=== PATIENT | female | born 1990 | race American Indian/Alaskan Native ===

== ENCOUNTER 2019-09-10 07:20 | Day surgery (SDC) | payer MEDICAID ==
[2019-09-10] MEDS ORDERED: METHYLERGONOVINE MALEATE 0.2 MG/ML VIAL IM ONE ×4 (08:06→22:02)
--- NOTE | 2019-09-10 08:07 | Short Stay Summary ---
Short Stay Documentation Date of service: 09/10/19 Narrative H&P: Pt is a 29yo BF LMP 05/13/19 presents for surgical evaluation and treatment of Missed due to demise. Ob u/s showed IUFD @ 10 1/7 weeks. She now presents for a D&C. - History Principal diagnosis: Incomplete H&P: obtained from office Past Medical History: hypertension, other (asthma) Past Surgical History: Social history: no significant social history, single - Allergies and Medications Current Medications: Allergies No Known Allergies Allergy (Verified 09/07/19 15:27) Home Medications Medication Instructions Recorded Confirmed Last Taken Type NIFEdipine [Nifedipine ER] 60 mg PO HS 09/07/19 09/07/19 Unknown History - Physical exam General appearance: no acute distress Integumentary: no rash HEENT: Atraumatic Lungs: Clear to auscultation Breasts: deferred Heart: Regular rate Gastrointestinal: normal Female Genitourinary: deferred Rectal Exam: deferred Extremities: no ischemia, No edema Neurological: Normal gait, Normal speech - Brief post op/procedure progress note Date of procedure: 09/10/19 Pre-op diagnosis: 1. Missed 2. demise 3. Incomplete Post-op diagnosis: same Procedure: D&C Anesthesia: MAC Findings: A 10-12 weeks size uterus with necrotic tissue and POC Surgeon: SHINE MARRERO Estimated blood loss: other (200ml) Pathology: list (POC) Specimen disposition: to lab Condition: stable - Hospital course Hospital course: Unremarkable. - Disposition Condition at discharge: Good Disposition: DC- TO HOME OR SELFCARE - Discharge Diagnoses (1) Missed Status: Acute (2) demise due to miscarriage Status: Acute Short Stay Discharge Plan Activity: no restrictions Diet: regular Follow up with: TOM PASCAL MD [Primary Care Provider] - 7 Days SHINE MARRERO MD [Staff Physician] - 14 Days Prescriptions: Doxycycline Hyclate [Doxycycline Hyclate TAB] 100 mg PO Q12HR #14 tab Methylergonovine [Methergine] 0.2 mg PO Q8HR #6 tablet Ibuprofen [Motrin] 800 mg PO Q8HR PRN #30 tablet PRN Reason: Pain, Moderate (4-6)
[2019-09-10] MEDS ORDERED: SILVER NITRATE APPLICATOR 1 EA TP ONE ×2 (08:10→21:47)
--- NOTE | 2019-09-10 08:21 | Anesthesia Consultation ---
Anesthesia Consult and Med Hx Date of service: 09/10/19 - Airway Anesthetic Teeth Evaluation: Good ROM Head & Neck: Adequate Mental/Hyoid Distance: Adequate Mallampati Class: Class II - Pulmonary Exam CTA: Yes - Cardiac Exam Cardiac Exam: RRR - Pre-Operative Health Status ASA Pre-Surgery Classification: ASA2 Proposed Anesthetic Plan: General - Pulmonary Hx Asthma: Yes (As a child) - Cardiovascular System Hx Hypertension: Yes (x 1 yr) - Central Nervous System Hx Psychiatric Problems: Yes - Other Systems Hx Cancer: No
--- NOTE | 2019-09-10 08:22 | Anesthesia Day of Surgery ---
Anesthesia Day of Surgery - Day of Surgery Patient Examined: Yes Patient H&P Reviewed: Yes Patient is NPO: Yes
[2019-09-10] MEDS ORDERED: HYDROmorphone 1 MG/1 ML INJ IV PRN ×2 (08:23→22:02)
[2019-09-10] MEDS ORDERED: ONDANSETRON 4 MG/2 ML INJ IV PRN (08:23)
[2019-09-10] MEDS ORDERED: fentaNYL 100 MCG/2 ML INJ ONE (08:38)
[2019-09-10] MEDS ORDERED: LIDOCAINE MPF (2%) 20 MG/1 ML VIAL 5 ML ONE (08:38)
[2019-09-10] MEDS ORDERED: PROPOFOL 200 MG/20 ML VIAL IV ONE (08:39)
[2019-09-10] MEDS ORDERED: LACTATED RINGERS 1,000 ML IV SCH (09:00)
[2019-09-10] MEDS ORDERED: MIDAZOLAM 2 MG/2 ML INJ IV NR (09:00)
[2019-09-10] MEDS ORDERED: ceFAZolin/Water 2 GM/20 ML 2 GM/20 ML SYRINGE IV NR (09:00)
[2019-09-10 09:42] LABS: Hematocrit 36.3 % (30.3-42.9); Hemoglobin 12.5 gm/dl (10.1-14.3)
[2019-09-10] MEDS ORDERED: ONDANSETRON 4 MG/2 ML INJ ONE (11:04)
--- NOTE | 2019-09-10 11:13 | Ultrasound Report ---
FIRSTTRIMESTER OBSTETRIC ULTRASOUND HISTORY: demise COMPARISON: None. TECHNIQUE: Routine transabdominal OB ultrasound performed. FINDINGS: Uterus: Mildly enlarged measuring 11.9 x 7.4 x 9.1 cm. Gestational Sac: Deformed Yolk Sac: Visualized Fetus/Embryo: [place]-rump length of 3.88 cm, corresponding to an estimated gestational age of 10 weeks 6 days. Embryonic/ anatomy is too small for evaluation. Embryonic/ cardiac activity: 0bpm Placenta: Too small for evaluation. Amniotic fluid volume: Subjectively appropriate for gestational age. Ovaries: The right ovary is not visualized. The left ovary is visualized. Additional findings: None. IMPRESSION Findings consistent with demise Signer Name: Jules South Jr, MD Signed: 09/10/2019 11:09 AM Workstation Name: [id number]
[2019-09-10] MEDS ORDERED: HYDROmorphone 1 MG/1 ML INJ ONE (11:19)
--- NOTE | 2019-09-10 11:21 | Operative Report ---
Operative Report Operative Report: PREOPERATIVE DIAGNOSIS: 1. Incomplete 2. demise 3. Missed POSTOPERATIVE DIAGNOSIS: Same OPERATIVE PROCEDURE: 1. Dilatation and curettage. SURGEON: Jules Scott MD ANESTHESIA: Gen. MAC ANESTHESIOLOGIST: Dr. Hatch ESTIMATED BLOOD LOSS: 200 mL's FINDINGS: A 10-12 week size uterus with tissue and large amounts of blood clots and products of conception. COMPLICATIONS: None COUNTS: Correct x3. PROCEDURE: After the patient was correctly identified as the patient, and after general anesthesia was administered, the patient was prepped and draped in the usual sterile fashion and placed in dorsal lithotomy position. First, the bladder was emptied using a straight catheter. Next, a speculum was placed in the vaginal vault and the anterior lip of the cervix was grasped using a single- tooth tenaculum. The cervix was sequentially dilated. The uterus was sounded to 10 cm, and an 11mm vacurrette was used to suction blood and products of conception from the endometrial cavity, and parts were removed and sent to pathology. After satisfactory suctioning was performed, the procedure was considered complete. All instruments were removed from the vagina. The patient tolerated the procedure well and was transferred to the recovery room in stable condition.
[2019-09-10] MEDS ORDERED: KETOROLAC 30 MG/1 ML INJ ONE (11:22)
--- NOTE | 2019-09-10 11:41 | Post Anesthesia Evaluation ---
- Post Anesthesia Evaluation Patient Participated: Yes Airway Patent: Yes Stable Respiratory Function: Yes Nausea/Vomiting: No Temp > 96.8F: Yes Pain Manageable: Yes Adequeate Hydration: Yes Anesthesia Complications: No Block Receding Appropriately: Not Applicable Patient on Ventilator: No
[2019-09-10 16:11] VITALS: BP 128/82
== END 2019-09-10 07:21 | disposition home or self-care (01) ==
LOC: OR 07:20
PROVIDERS: ATTEND Obstetrics & Gynecology
DX: O03.9 Complete or unspecified spontaneous abortion without complication (principal); O03.4 Incomplete spontaneous abortion without complication; J45.909 Unspecified asthma, uncomplicated; F41.9 Anxiety disorder, unspecified; Z98.890 Other specified postprocedural states; Z79.899 Other long term (current) drug therapy; Z98.891 History of uterine scar from previous surgery
CPT/HCPCS: 36415; 36430; 76801; 84702; 84703; 85014; 85018; 85025; 86850; 86900; 86901; 86920; 88305; 96365; 96367; 96375; G0378; J0330; J0690; J1100; J1170; J1580; J1885; J2210; J2250; J2270; J2370; J2405; J2704; J3010; J7030; J7040; J7120; P9016

== ENCOUNTER 2019-09-10 16:07 | Observation (INO) | payer MEDICAID ==
[2019-09-10] MEDS ORDERED: SODIUM CHLORIDE 0.9% 1000 ML 2,000 ML IV ONE (17:26)
--- NOTE | 2019-09-10 17:26 | Emergency Department Report ---
ED Female HPI - General Chief complaint: Vaginal Bleeding Stated complaint: VAGINAL BLEEDING/CRAMPS Time Seen by Provider: 09/10/19 17:23 Source: patient, RN notes reviewed, old records reviewed Mode of arrival: Ambulatory Limitations: No Limitations - History of Present Illness Initial comments: During the history and physical examination, I am chaperoned and escorted by nurse Day Barbosa Gynecology: Dr. Laurent Scott The patient is a 29-year-old female, who recently had a miscarriage, and had an elective dilatation and curettage by Dr. Scott earlier on today. She reports that she was discharged, and at around 12:30 PM, developed lower abdominal cramping, and profuse vaginal bleeding. She has gone through 2 minipads to count, as per the patient. The abdominal cramping is sharp, throbbing and cramping, lower abdominal region, does not radiate anywhere, and improved with rest and pain medication. The patient denied headache, neck pain, chest pain, cough, irritative/obstructive urinary symptoms. She felt mildly weak and lightheaded. As far she knows, she does not have a prior history of easy bleeding and or bruising. She had an elective termination of in 2007, which had some postprocedural bleeding, but not as much as today. MD Complaint: vaginal bleeding, pelvic pain -: Gradual, hour(s) Severity: moderate Quality: cramping, other Improves with: other Worsens with: other Are you Now?: No Associated Symptoms: vaginal bleeding - Related Data Sexually active: Yes Home Medications Medication Instructions Recorded Confirmed Last Taken NIFEdipine [Nifedipine ER] 60 mg PO HS 09/07/19 09/10/19 09/09/19 20:00 Previous Rx's Medication Instructions Recorded Last Taken Type Doxycycline Hyclate [Doxycycline 100 mg PO Q12HR #14 tab 09/10/19 Unknown Rx Hyclate TAB] Ibuprofen [Motrin] 800 mg PO Q8HR PRN #30 tablet 09/10/19 Unknown Rx Methylergonovine [Methergine] 0.2 mg PO Q8HR #6 tablet 09/10/19 Unknown Rx Allergies Allergy/AdvReac Type Severity Reaction Status Date / Time No Known Allergies Allergy Verified 09/07/19 15:27 ED Review of Systems ROS: Stated complaint: VAGINAL BLEEDING/CRAMPS Other details as noted in HPI Constitutional: malaise. denies: fever Eyes: denies: eye discharge ENT: denies: congestion Cardiovascular: denies: syncope Gastrointestinal: abdominal pain. denies: vomiting Genitourinary: abnormal menses Musculoskeletal: denies: back pain Skin: denies: lesions Neurological: weakness Psychiatric: anxiety Hematological/Lymphatic: denies: easy bleeding ED Past Medical Hx - Past Medical History Previous Medical History?: Yes Hx Hypertension: Yes (x 1 yr) Hx Headaches / Migraines: Yes Hx Asthma: Yes (As a child) - Surgical History Past Surgical History?: Yes Additional Surgical History: . - Social History Smoking Status: Never Smoker Substance Use Type: None - Medications Home Medications: Home Medications Medication Instructions Recorded Confirmed Last Taken Type NIFEdipine [Nifedipine ER] 60 mg PO HS 09/07/19 09/10/19 09/09/19 20:00 History Doxycycline Hyclate [Doxycycline 100 mg PO Q12HR #14 tab 09/10/19 Unknown Rx Hyclate TAB] Ibuprofen [Motrin] 800 mg PO Q8HR PRN #30 tablet 09/10/19 Unknown Rx Methylergonovine [Methergine] 0.2 mg PO Q8HR #6 tablet 09/10/19 Unknown Rx ED Physical Exam - General Limitations: No Limitations General appearance: alert, anxious - Head Head exam: Present: atraumatic, normocephalic - Eye Eye exam: Present: normal appearance, EOMI. Absent: nystagmus - ENT ENT exam: Present: normal exam, normal orophraynx, mucous membranes moist, normal external ear exam - Neck Neck exam: Present: normal inspection, full ROM. Absent: tenderness, meningismus - Respiratory Respiratory exam: Present: normal lung sounds bilaterally. Absent: respiratory distress, wheezes, rales, rhonchi, stridor - Cardiovascular Cardiovascular Exam: Present: normal rhythm, tachycardia, normal heart sounds. Absent: systolic murmur, diastolic murmur, rubs, gallop - GI/Abdominal GI/Abdominal exam: Present: soft. Absent: distended, tenderness, guarding, rebound, rigid, pulsatile mass - External exam: Present: normal external exam, bleeding Speculum exam: Present: vaginal bleeding, tissue, other (chaperoned by Adriana Barbosa) - Extremities Exam Extremities exam: Present: normal inspection, other (2+ pulses noted in the bilateral upper and lower extremities. The pelvis is stable. There is no long bony tenderness. The muscular compartments are soft. There is no redness, pus, streaking or erythema.). Absent: calf tenderness - Back Exam Back exam: Present: normal inspection. Absent: tenderness, CVA tenderness (R), CVA tenderness (L), paraspinal tenderness, vertebral tenderness - Neurological Exam Neurological exam: Present: alert, other (there is no facial droop. The tongue is midline. Extraocular movements are intact bilaterally. Speaking in full sentences. Hearing is grossly intact. 5 out of 5 strength bilateral upper and lower extremities. Sensation is intact to light touch bilateral upper and lower extremities.) - Psychiatric Psychiatric exam: Present: anxious - Skin Skin exam: Present: warm, dry, intact, normal color. Absent: rash ED Course Vital Signs 09/10/19 09/10/19 09/10/19 16:20 17:25 18:02 Temperature 98.2 F Pulse Rate 120 H 83 Respiratory 16 18 18 Rate Blood Pressure 145/80 Blood Pressure 98/70 [Left] O2 Sat by Pulse 99 99 99 Oximetry 09/10/19 19:14 Temperature Pulse Rate 92 H Respiratory 18 Rate Blood Pressure Blood Pressure 121/84 [Left] O2 Sat by Pulse 100 Oximetry ED Medical Decision Making - Lab Data Result diagrams: 09/10/19 17:35 Vital Signs 09/10/19 09/10/19 09/10/19 16:20 17:25 18:02 Temperature 98.2 F Pulse Rate 120 H 83 Respiratory 16 18 18 Rate Blood Pressure 145/80 Blood Pressure 98/70 [Left] O2 Sat by Pulse 99 99 99 Oximetry 09/10/19 19:14 Temperature Pulse Rate 92 H Respiratory 18 Rate Blood Pressure Blood Pressure 121/84 [Left] O2 Sat by Pulse 100 Oximetry Lab Results 09/10/19 09/10/19 09/10/19 Range/Units 17:35 17:35 17:35 WBC 11.3 H (4.5-11.0) K/mm3 RBC 3.29 L (3.65-5.03) M/mm3 Hgb 10.5 (10.1-14.3) gm/dl Hct 30.3 D (30.3-42.9) % MCV 92 (79-97) fl MCH 32 (28-32) pg MCHC 35 H (30-34) % RDW 14.2 (13.2-15.2) % Plt Count 204 (140-440) K/mm3 Lymph % (Auto) 11.1 L (13.4-35.0) % Mclean % (Auto) 5.9 (0.0-7.3) % Eos % (Auto) 0.1 (0.0-4.3) % Baso % (Auto) 0.3 (0.0-1.8) % Lymph # 1.2 (1.2-5.4) K/mm3 Mclean # 0.7 (0.0-0.8) K/mm3 Eos # 0.0 (0.0-0.4) K/mm3 Baso # 0.0 (0.0-0.1) K/mm3 Seg Neutrophils % 82.6 H (40.0-70.0) % Seg Neutrophils # 9.3 H (1.8-7.7) K/mm3 HCG, Quant 9700 H (0-4) mIU/mL Blood Type O POSITIVE - Radiology Data Radiology results: pending - Medical Decision Making Differential diagnosis, including but not limited to: Retained products of conception, bleeding secondary to recent dilatation and curettage, postprocedural bleeding Assessment and plan: 29-year-old female with postprocedural bleeding. She is initially tachycardic and hypotensive, but this improves with conservative and supportive measures. On her gynecologic examination, large blood and clots are noted. A pelvic ultrasound is obtained. at the moment Moment, we have had issues with power going in and out,and therefore, the lead nuclear medicine technologist is not able to transmit the ultrasound images to the radiologist for formal interpretation. However, the lead nuclear medicine technologist indicates that there is a thickened endometrium, 5.4 cm, heterogeneous tissue. The patient refused an endovaginal examination. We are concerned about retained products of conception. Contacted the patient's ward clerk, Dr. Scott, who has evaluated the patient in the emergency room, and plans to take the patient to the operating room for repeat intervention. Critical care attestation.: If time is entered above; I have spent that time in minutes in the direct care of this critically ill patient, excluding procedure time. ED Disposition Clinical Impression: Vaginal bleeding, Missed Disposition: OP ADMIT IP TO THIS HOSP Is pt being admited?: Yes Does the pt Need Aspirin: No Condition: Good
[2019-09-10 18:00] LABS: Basophils % (Auto) 0.3 % (0.0-1.8); Eosinophils % (Auto) 0.1 % (0.0-4.3); Hematocrit 30.3 % (30.3-42.9); Hemoglobin 10.5 gm/dl (10.1-14.3); Lymphocytes # (Auto) 1.2 K/mm3 (1.2-5.4); Lymphocytes % (Auto) 11.1 % (13.4-35.0); Mean Corpuscular HGB Conc 35 % (30-34); Mean Corpuscular Volume 92 fl (79-97); Monocytes # (Auto) 0.7 K/mm3 (0.0-0.8); Monocytes % (Auto) 5.9 % (0.0-7.3); Platelet Count 204 K/mm3 (140-440); Red Blood Count 3.29 M/mm3 (3.65-5.03); Red Cell Distribution Width 14.2 % (13.2-15.2)
[2019-09-10] MEDS ORDERED: ONDANSETRON 4 MG/2 ML INJ IV ONE (18:39)
[2019-09-10] MEDS ORDERED: MORPHINE 4 MG/1 ML INJ IV ONE (18:39)
[2019-09-10] MEDS ORDERED: GENTAMICIN/NS 80 MG/100 ML 100 ML IV SCH (20:38)
--- NOTE | 2019-09-10 20:43 | Short Stay Summary ---
Short Stay Documentation Date of service: 09/10/19 Narrative H&P: Pt is a 29yo BF s/p D&C earlier today presents for surgical evaluation and treatment of Retained POC. Ob u/s showed a thickened endometrial lining of 5.4cm, and she has continued vaginal bleeding and pain. - History Principal diagnosis: Ratined POC H&P: obtained from office Past Medical History: hypertension, other (Asthma) Past Surgical History: Social history: no significant social history, - Allergies and Medications Current Medications: Allergies No Known Allergies Allergy (Verified 09/07/19 15:27) Home Medications Medication Instructions Recorded Confirmed Last Taken Type NIFEdipine [Nifedipine ER] 60 mg PO HS 09/07/19 09/10/19 09/09/19 20:00 History Doxycycline Hyclate [Doxycycline 100 mg PO Q12HR #14 tab 09/10/19 Unknown Rx Hyclate TAB] Ibuprofen [Motrin] 800 mg PO Q8HR PRN #30 tablet 09/10/19 Unknown Rx Methylergonovine [Methergine] 0.2 mg PO Q8HR #6 tablet 09/10/19 Unknown Rx Active Medications Gentamicin Sulfate 80 mg/ (Sodium Chloride) 102 mls @ 200 mls/hr IV PREOP ONE; Protocol Stop: 09/10/19 21:07 Clindamycin HCl (Cleocin 900 Mg/50 Ml) 900 mg in 50 mls @ 100 mls/hr IV PREOP ONE; Protocol Stop: 09/10/19 21:07 - Physical exam General appearance: mild distress Integumentary: no rash HEENT: Atraumatic Lungs: Clear to auscultation Breasts: deferred Heart: Regular rate Gastrointestinal: normal Female Genitourinary: deferred Rectal Exam: deferred Extremities: no ischemia, No edema Neurological: Normal gait, Normal speech - Brief post op/procedure progress note Date of procedure: 09/10/19 Pre-op diagnosis: Retained POC Post-op diagnosis: same Procedure: D&C Anesthesia: MAC Findings: A 10-12 weeks size uterus with large amounts of blood clots in the uterine cavity. Scant POC. Surgeon: SHINE MARRERO Estimated blood loss: 50-100ml Pathology: list (POC) Specimen disposition: to lab Condition: stable - Hospital course Hospital course: Pt is a 29yo BF s/p D&C earlier today presented for surgical evaluation and treatment of Retained POC. Ob u/s showed a thickened endometrial lining of 5.4cm, and she had continued vaginal bleeding and pain. She returned to the OR for a Repeat D&C yielding mostly blood and blood clots with scant POC. She however had lost quite a bit of blood and was now symptomatic. Her H/H decreased from 12.5/36.3 down to 6.3/18.2 She received a unit of blood raising her H/H to 7.0/20.3 and her symptoms resolved. She was therefore discharged to home on POD #2 in stable condition. - Disposition Condition at discharge: Good Disposition: DC-01 TO HOME OR SELFCARE - Discharge Diagnoses (1) Retained products of conception after miscarriage Status: Resolved (2) Acute blood loss anemia Status: Resolved Short Stay Discharge Plan Activity: no restrictions Diet: regular Follow up with: LAYLA MENDOZA MD [Staff Physician] - 7 Days SHINE MARRERO MD [Staff Physician] - 14 Days SAMMIE YANG NP [Referring] - 14 Days Prescriptions: Ferrous Sulfate [Feosol 325 MG tab] 325 mg PO BID #60 tablet
[2019-09-10] MEDS ORDERED: fentaNYL 100 MCG/2 ML INJ ONE ×2 (22:00→22:46)
[2019-09-10] MEDS ORDERED: PROPOFOL 200 MG/20 ML VIAL IV ONE (22:00)
[2019-09-10] MEDS ORDERED: ONDANSETRON 4 MG/2 ML INJ ONE (22:02)
[2019-09-10] MEDS ORDERED: LIDOCAINE MPF (2%) 20 MG/1 ML VIAL 5 ML ONE (22:02)
[2019-09-10] MEDS ORDERED: dexAMETHasone 20 MG/5 ML VIAL ONE (22:02)
[2019-09-10] MEDS ORDERED: SUCCINYLCHOLINE CHLORIDE 200 MG/10 ML INJ MDV ONE (22:04)
[2019-09-10] MEDS ORDERED: PHENYLEPHRINE/NS 1,000 MCG/10 ML SYRINGE (OR USE) IV ONE (22:04)
[2019-09-10] MEDS ORDERED: MIDAZOLAM 2 MG/2 ML INJ ONE ×2 (22:13→22:46)
[2019-09-10] MEDS ORDERED: SODIUM CHLORIDE 0.9% IRR 1,000 ML BOTTLE IR ONE (22:23)
[2019-09-10] MEDS ORDERED: ACETAMINOPHEN 325 MG TAB PO PRN (22:48)
[2019-09-10] MEDS ORDERED: PROMETHAZINE 25 MG RECT SUPP PR PRN (22:48)
[2019-09-10] MEDS ORDERED: WITCH HAZEL/ GLYCERIN PAD TP PRN (22:48)
[2019-09-10] MEDS ORDERED: LANOLIN/ZINC/DIMETHICONE (LANSINOH) 7 GM TP PRN (22:48)
[2019-09-10] MEDS ORDERED: diphenhydrAMINE 25 MG CAP PO PRN (22:48)
[2019-09-10] MEDS ORDERED: HYDROcodone/ACETAMINOPHEN 5-325 MG TAB PO PRN (22:48)
[2019-09-10] MEDS ORDERED: MAGNESIUM HYDROXIDE (MOM) ORAL LIQD UDC PO PRN (22:48)
[2019-09-10] MEDS ORDERED: ONDANSETRON 4 MG/2 ML INJ IV PRN (22:48)
[2019-09-10] MEDS ORDERED: PROMETHAZINE 25 MG TAB PO PRN (22:48)
--- NOTE | 2019-09-10 23:42 | Operative Report ---
Operative Report Operative Report: PREOPERATIVE DIAGNOSIS: 1. Retained Products of conception POSTOPERATIVE DIAGNOSIS: Same OPERATIVE PROCEDURE: 1. Dilatation and curettage. SURGEON: Jules Scott MD ANESTHESIA: Gen. MAC ANESTHESIOLOGIST: Dr. Quiles ESTIMATED BLOOD LOSS: 100 mL's FINDINGS: A 10-12 week size uterus with large amounts of blood clots and scant products of conception. COMPLICATIONS: None COUNTS: Correct x3. PROCEDURE: After the patient was correctly identified as the patient, and after general anesthesia was administered, the patient was prepped and draped in the usual sterile fashion and placed in dorsal lithotomy position. First, the bladder was emptied using a straight catheter. Next, a speculum was placed in the vaginal vault and the anterior lip of the cervix was grasped using a single- tooth tenaculum. The cervix was sequentially dilated. The uterus was sounded to 12 cm, and a 12mm vacurrette was used to suction blood and products of conception from the endometrial cavity and sent to pathology. After satisfactory suctioning was performed, sharp curettage also was performed and the procedure was considered complete. All instruments were removed from the vagina. The patient tolerated the procedure well and was transferred to the recovery room in stable condition.
[2019-09-10] MEDS ORDERED: METHYLERGONOVINE MALEATE 0.2 MG/ML VIAL IM ONE (23:43)
[2019-09-10] MEDS: METHYLERGONOVINE 0.2 MG TABLET PO SCH (23:52)
[2019-09-11] MEDS: IBUPROFEN 600 MG TAB PO SCH ×4 (00:05→21:42)
--- NOTE | 2019-09-11 01:05 | Ultrasound Report ---
Examination: Ultrasound Obstetrical Limited, 10/07/2018 at 7:19 PM INDICATION: Evaluate for retained products of conception after D & C earlier today. COMPARISON: Obstetrical ultrasound, 10/07/2019 at 10:42 AM FINDINGS: The uterus is enlarged measuring 13.5 x 9.2 x 9.9 cm. There is echogenic material within the endometr ial canal measuring a maximum thickness of 5.3 cm. There is no associated vascularity with this. IMPRESSION: 1. Enlarged heterogeneous uterus with heterogeneous appearance of the endometrial canal. Findings may be related to postprocedural state versus retained blood products versus retained products of concep tion. It would be difficult to differentiate these on the basis of today's study. Signer Name: Natividad Johnson MD Signed: 09/11/2019 1:01 AM Workstation Name: [id number]
[2019-09-11] MEDS: METHYLERGONOVINE 0.2 MG TABLET PO SCH ×3 (05:28→21:41)
[2019-09-11] MEDS: metroNIDAZOLE 500 MG TAB PO SCH ×2 (09:15→21:42)
[2019-09-11 14:54] LABS: Hemoglobin 6.3 gm/dl (10.1-14.3)
[2019-09-11 15:01] LABS: Hematocrit 18.2 % (30.3-42.9)
[2019-09-11] MEDS ORDERED: diphenhydrAMINE 25 MG CAP PO PRN (15:33)
[2019-09-11] MEDS ORDERED: ACETAMINOPHEN 325 MG TAB PO ONE (16:00)
[2019-09-11] MEDS ORDERED: SODIUM CHLORIDE 0.9% 500 ML 500 ML IV ONE (16:00)
[2019-09-11] MEDS ORDERED: diphenhydrAMINE 50 MG/ML VIAL IV ONE (16:00)
[2019-09-11] MEDS ORDERED: SODIUM CHLORIDE 0.9% 500 ML 500 ML IV SCH (23:45)
[2019-09-12 09:57] VITALS: BP 114/66
[2019-09-12 10:18] LABS: Hematocrit 20.3 % (30.3-42.9)
[2019-09-12] MEDS: metroNIDAZOLE 500 MG TAB PO SCH (10:30)
== END 2019-09-12 11:35 | disposition home or self-care (01) ==
LOC: ED 16:07 → OB 20:45 → INTOOBSV 20:45 → ED 22:00
PROVIDERS: ADMIT Obstetrics & Gynecology; ATTEND Obstetrics & Gynecology
DX: O03.4 Incomplete spontaneous abortion without complication (principal); D62 Acute posthemorrhagic anemia; N93.9 Abnormal uterine and vaginal bleeding, unspecified; I10 Essential (primary) hypertension; J45.909 Unspecified asthma, uncomplicated; Z98.891 History of uterine scar from previous surgery
CPT/HCPCS: 36415; 36430; 59812; 76801; 84702; 84703; 85014; 85018; 85025; 86850; 86900; 86901; 86920; 88305; 96365; 96367; 96375; 99284; G0378; J0330; J1100; J1580; J2250; J2270; J2370; J2405; J2704; J3010; J7030; J7040; P9016; J2210